=== PATIENT | male | born 1965 | race Hispanic/Latino ===

== ENCOUNTER 2017-05-14 09:40 | Emergency (ER) | payer OTHER ==
[2017-05-14 10:07] VITALS: BP 128/82
[2017-05-14] MEDS ORDERED: MOTRIN PO ONE (10:44)
[2017-05-14] MEDS ORDERED: DECADRON IM ONE (10:44)
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
== END 2017-05-14 11:03 | disposition home or self-care (01) ==
LOC: ED 09:40
DX: S39.012A Strain of muscle, fascia and tendon of lower back, initial encounter (principal); X58.XXXA Exposure to other specified factors, initial encounter; Y93.9 Activity, unspecified; Y92.9 Unspecified place or not applicable; Y99.9 Unspecified external cause status; F17.200 Nicotine dependence, unspecified, uncomplicated
CPT/HCPCS: 96372; 99283; J1100

== ENCOUNTER 2019-02-15 02:58 | Emergency (ER) | payer SELFPAY ==
[2019-02-15 03:07] VITALS: BP 135/79
--- NOTE | 2019-02-15 05:18 | Emergency Department Report ---
ED Extremity Problem HPI - General Chief complaint: Extremity Injury, Lower Stated complaint: PAIN AND SWELLING IN FEET Time Seen by Provider: 02/15/19 05:12 Source: patient Mode of arrival: Ambulatory Limitations: No Limitations - History of Present Illness Initial comments: 53-year-old male comes in complaining of swelling and pain to the feet for 2 days. Patient denies any injury but states that he has just been working. Patient reports he's been working outside in the heat and not drinking much fluids. Patient states that he just feels drained and dehydrated. Patient reports pain is worse with walking. He reports he's had a fever earlier today and has taken Tylenol about 1 AM. Patient does have a past medical history of anxiety bipolar and depression. He reports he currently is taking no medications has no known drug allergies. MD Complaint: extremity pain, extremity swelling -: days(s) (2) Location: bilateral lower extremity -: Yes myalgia Severity scale (0 -10): 10 Quality: burning Consistency: constant Improves with: nothing Worsens with: walking Associated Symptoms: fever, myalgias - Related Data Home Medications Medication Instructions Recorded Confirmed Last Taken ALPRAZolam [Xanax TAB] 1 mg PO BID PRN 10/06/15 02/01/16 10/07/15 Quetiapine Fumarate (Nf) [SEROquel 200 mg PO QHS 10/06/15 02/01/16 1 Day Ago XR] ~01/31/16 Sertraline [Zoloft] 100 mg PO BID 02/01/16 02/01/16 Unknown Previous Rx's Medication Instructions Recorded Last Taken Type Famotidine [Pepcid] 20 mg PO BID #60 tablet 10/07/15 Unknown Rx Famotidine [Pepcid] 20 mg PO BID #20 tablet 02/01/16 Unknown Rx HYDROcodone/APAP 5-325 [[place] 1 each PO Q6HR PRN #14 tablet 02/01/16 Unknown Rx 5/325] Ondansetron [Zofran Odt] 4 mg PO Q8H PRN #10 tab.rapdis 02/01/16 Unknown Rx Diclofenac Sodium 75 mg PO BID #20 tablet. 05/14/17 Unknown Rx methOCARBAMOL [Robaxin TAB] 750 mg PO Q8H PRN #20 tablet 05/14/17 Unknown Rx Ibuprofen [Motrin 600 MG tab] 600 mg PO Q8H PRN #30 tablet 02/15/19 Unknown Rx Allergies Allergy/AdvReac Type Severity Reaction Status Date / Time No Known Allergies Allergy Verified 05/14/17 09:52 ED Review of Systems ROS: Stated complaint: PAIN AND SWELLING IN FEET Other details as noted in HPI Comment: All other systems reviewed and negative Musculoskeletal: joint swelling ( feet), arthralgia (feet) ED Past Medical Hx - Past Medical History Previous Medical History?: Yes Hx Liver Disease: Yes Hx Psychiatric Treatment: Yes (anxiety; BIPOLAR ; MANIC DEPRESSION) Additional medical history: "right eye blindness" - Surgical History Past Surgical History?: Yes Additional Surgical History: "right kidney removed" for precancerous cyst. Left EYE PROSTHESIS - Social History Smoking Status: Current Every Day Smoker Substance Use Type: None - Medications Home Medications: Home Medications Medication Instructions Recorded Confirmed Last Taken Type ALPRAZolam [Xanax TAB] 1 mg PO BID PRN 10/06/15 02/01/16 10/07/15 History Quetiapine Fumarate (Nf) [SEROquel 200 mg PO QHS 10/06/15 02/01/16 1 Day Ago History XR] ~01/31/16 Famotidine [Pepcid] 20 mg PO BID #60 tablet 10/07/15 02/01/16 Unknown Rx Famotidine [Pepcid] 20 mg PO BID #20 tablet 02/01/16 Unknown Rx HYDROcodone/APAP 5-325 [[place] 1 each PO Q6HR PRN #14 tablet 02/01/16 Unknown Rx 5/325] Ondansetron [Zofran Odt] 4 mg PO Q8H PRN #10 tab.rapdis 02/01/16 Unknown Rx Sertraline [Zoloft] 100 mg PO BID 02/01/16 02/01/16 Unknown History Diclofenac Sodium 75 mg PO BID #20 tablet. 05/14/17 Unknown Rx methOCARBAMOL [Robaxin TAB] 750 mg PO Q8H PRN #20 tablet 05/14/17 Unknown Rx Ibuprofen [Motrin 600 MG tab] 600 mg PO Q8H PRN #30 tablet 02/15/19 Unknown Rx ED Physical Exam - General Limitations: No Limitations General appearance: alert, in no apparent distress - Head Head exam: Present: atraumatic, normocephalic - Eye Eye exam: Present: normal appearance - ENT ENT exam: Present: mucous membranes dry - Neck Neck exam: Present: normal inspection - Respiratory Respiratory exam: Present: normal lung sounds bilaterally. Absent: respiratory distress - Cardiovascular Cardiovascular Exam: Present: tachycardia - GI/Abdominal GI/Abdominal exam: Present: soft, normal bowel sounds - Extremities Exam Extremities exam: Present: pedal edema, other (calluses on both feet) - Back Exam Back exam: Present: normal inspection, full ROM - Neurological Exam Neurological exam: Present: alert, oriented X3 - Psychiatric Psychiatric exam: Present: normal affect, normal mood - Skin Skin exam: Present: warm, dry, intact, normal color. Absent: rash ED Course Vital Signs 02/15/19 02:59 Temperature 98.0 F Pulse Rate 97 H Respiratory 18 Rate Blood Pressure 135/79 O2 Sat by Pulse 100 Oximetry ED Medical Decision Making - Radiology Data The 3-year-old male seen by this provider for swelling and pain to both feet 2 days. Patient also complains of fatigue and draining. Patient was given an IV with normal saline and ibuprofen for pain management. Discussed the patient at his feet are swelling and pain secondary to improper shoes not drinking enough fluids and from walking all day on them. Patient was discharged home after having fluids patient be given ibuprofen for pain management and to follow-up with her primary care provider. Critical care attestation.: If time is entered above; I have spent that time in minutes in the direct care of this critically ill patient, excluding procedure time. ED Disposition Clinical Impression: Pain of toes of both feet, Malaise and fatigue Disposition: DC-01 TO HOME OR SELFCARE Is pt being admited?: No Does the pt Need Aspirin: No Condition: Stable Instructions: Arthralgia (ED) Additional Instructions: Take pain medications as needed. Please drink plenty of fluids while working outside. Follow-up with her primary care provider I have listed one below for your convenience. Prescriptions: Ibuprofen [Motrin 600 MG tab] 600 mg PO Q8H PRN #30 tablet PRN Reason: Pain Forms: Work/School Release Form(ED)
[2019-02-15] MEDS ORDERED: NACL 0.9% 1000 ML 1,000 ML IV ONE (05:27)
[2019-02-15] MEDS ORDERED: IBUPROFEN PO ONE (05:33)
== END 2019-02-15 06:59 | disposition home or self-care (01) ==
LOC: ED 02:58
DX: M79.675 Pain in left toe(s) (principal); M79.674 Pain in right toe(s); R53.81 Other malaise; R53.83 Other fatigue; F31.9 Bipolar disorder, unspecified; F17.200 Nicotine dependence, unspecified, uncomplicated; Z79.899 Other long term (current) drug therapy
CPT/HCPCS: 96360; 99283; J7030

== ENCOUNTER 2021-11-13 04:17 | Emergency (ER) | payer OTHER ==
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
--- NOTE | 2021-11-13 07:01 | XRay Report ---
RIGHT TIBIA-FIBULA 2 VIEW(S) INDICATION / CLINICAL INFORMATION: right leg pain COMPARISON: None available. FINDINGS: BONES / JOINT(S): No acute fracture or subluxation. No significant arthritis. SOFT TISSUES: No significant abnormality. ADDITIONAL FINDINGS: None. IMPRESSION: 1. No acute pathology. Signer Name: Justin Michaels II, MD Signed: 11/13/2021 6:57 AM Workstation Name: [id number]
--- NOTE | 2021-11-13 07:02 | XRay Report ---
RIGHT FOOT 3 VIEW(S) INDICATION / CLINICAL INFORMATION: right foot pain COMPARISON: None available. FINDINGS: BONES / JOINT(S): No acute fracture or subluxation. No significant arthritis. SOFT TISSUES: No significant abnormality. ADDITIONAL FINDINGS: None. IMPRESSION: 1. No acute pathology. No significant abnormality. Signer Name: Justin Michaels II, MD Signed: 11/13/2021 6:58 AM Workstation Name: [id number]
[2021-11-13 07:27] LABS: Hematocrit 46.2 % (35.5-45.6); Hemoglobin 15.1 gm/dl (11.8-15.2); Mean Corpuscular HGB Conc 33 % (32-34); Mean Corpuscular Volume 90 fl (84-94); Platelet Count 321 K/mm3 (140-440); Red Blood Count 5.11 M/mm3 (3.65-5.03); Red Cell Distribution Width 14.3 % (13.2-15.2)
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
[2021-11-13 07:53] LABS: BUN/Creatinine Ratio 13; Blood Urea Nitrogen 12 mg/dL (9-20); Calcium 8.7 mg/dL (8.4-10.2); Hemolysis Index 3
[2021-11-13 10:17] VITALS: BP 133/61
--- NOTE | 2021-11-14 13:14 | Electrocardiograph Report ---
[facility] Test Date: 2021-11-13 Test Time: 06:47:34 Pat Name: JEANETTE PATEL Department: Room: Gender: M [employer] Intern: DIRK : 1965 Requested By: ERIC CHATMAN Order Number: [id number] Reading MD: Carla London Measurements Intervals [place] Rate: 79 P: 81 IA: 187 QRS: 40 QRSD: 94 T: 58 QT: 395 QTc: 453 Interpretive Statements Sinus rhythm Abnrm R prog, consider ASMI or lead placement No previous ECG available for comparison Electronically Signed On 11-14-2021 13:14:17 EST by Carla London
== END 2021-11-13 10:18 ==
LOC: EEVIPCON 04:17 → ED 04:17
DX: M79.604 Pain in right leg (principal); Z02.79 Encounter for issue of other medical certificate; F15.20 Other stimulant dependence, uncomplicated; M54.12 Radiculopathy, cervical region; F17.200 Nicotine dependence, unspecified, uncomplicated; F31.9 Bipolar disorder, unspecified
CPT/HCPCS: 36415; 70450; 71045; 72125; 80048; 80320; 82550; 83735; 85027; 93005; 93010; 99285; G0480